=== PATIENT | female | born 1955 | race Caucasian/White ===

== ENCOUNTER 2019-06-28 | Emergency (ER) | payer MEDICARE ==
[2019-06-28] MEDS ORDERED: PREDNISONE50 MG PO (14:50)
== END 2019-06-28 15:02 | disposition home or self-care (01) ==
DX: T78.40XA Allergy, unspecified, initial encounter (principal); X58.XXXA Exposure to other specified factors, initial encounter

== ENCOUNTER 2021-06-24 08:52 | Emergency (ER) | payer MEDICARE ==
[~2021-06-24] VITALS: Ht 167.6 cm; Wt 87.6 kg
[~2021-06-24 08:52] MED LIST: PREDNISONE50 MG PO
[2021-06-24] MEDS ORDERED: AFRIN NASAL SP0.05 % NAB (09:44)
[2021-06-24] MEDS ORDERED: TORADOL PO (09:44)
[2021-06-24] MEDS ORDERED: LIDOCAINE HCL VIS2 % PO (09:44)
[2021-06-24 10:30] VITALS: BP 137/70
== END 2021-06-24 10:30 | disposition home or self-care (01) ==
LOC: ED 08:52
DX: U07.1 COVID-19 (principal); J10.1 Influenza due to other identified influenza virus with other respiratory manifestations

== ENCOUNTER 2024-06-28 11:02 | Emergency (ER) | payer MEDICARE ==
[~2024-06-28] VITALS: Ht 167.6 cm; Wt 89.8 kg
[~2024-06-28 11:02] MED LIST changes: +AFRIN NASAL SP0.05 % NAB; +LIDOCAINE HCL VIS2 % PO; +TORADOL PO
[2024-06-28 11:48] VITALS: BP 145/79
[2024-06-28 12:00] VITALS: BP 156/81
[2024-06-28 12:15] VITALS: BP 154/85
[2024-06-28] MEDS ORDERED: PREPARATION H SD (12:28)
[2024-06-28 12:31] VITALS: BP 155/73
[2024-06-28 12:32] VITALS: BP 155/73
== END 2024-06-28 12:59 | disposition home or self-care (01) ==
LOC: ED 11:02
DX: K64.4 Residual hemorrhoidal skin tags (principal)